=== PATIENT | female | born 1950 | race Caucasian/White ===

== ENCOUNTER 2020-07-06 11:34 | Outpatient (REF) | payer BC, SELFPAY ==
[2020-07-06 12:20] LABS: COVID-19 Test Negative (Negative); IDNOW Serial# 55D5AD1C
== END 2020-07-06 11:35 | disposition home or self-care (01) ==
LOC: HO.LAB 11:34
PROVIDERS: Visit Provider Internal Medicine
DX: Z20.822 Contact with and (suspected) exposure to COVID-19 (principal)
CPT/HCPCS: 36415; 87635; C9803

== ENCOUNTER 2022-08-22 07:34 | Outpatient (REF) | payer BC, SELFPAY ==
[2022-08-22 10:45] LABS: Hematocrit 41.2 % (37.0-47.0); Hemoglobin 13.5 g/dl (12.0-16.0); Mean Corpuscular HGB Conc 32.8 g/dl (31.0-35.0); Mean Corpuscular Hemoglobin 30.7 pg (27.0-33.0); Mean Corpuscular Volume 93.6 fL (80.0-98.0); Mean Platelet Volume 10.9 fL (9.4-12.3); Platelet Count 202 X10*3/uL (160-400); Red Cell Distribution Width 12.3 % (11.0-16.0); White Blood Count 6.8 X10*3/uL (4.8-10.8)
[2022-08-22 11:01] LABS: Alanine Aminotransferase 16 U/L (0-31); Albumin Level 4.2 g/dL (3.5-5.0); Alkaline Phosphatase 66 U/L (39-117); Anion Gap 11 (12-20); Aspartate Amino Transferase 18 U/L (5-31); Bilirubin Total 0.4 mg/dL (0.0-1.0); Blood Urea Nitrogen 15 mg/dL (9-16); Carbon Dioxide 32 mmol/L (22-29); Chloride 104 mmol/L (96-108); Cholesterol 195 mg/dL; Estimated Glomerular Filt Rate > 60; Glucose Fasting 103 mg/dL (60-99); HDL Cholesterol 60 mg/dL; LDL Cholesterol Calculated 124 mg/dl; Potassium 4.9 mmol/L (3.3-5.1); Sodium 142 mmol/L (135-145); Total Protein 6.7 g/dL (6.5-8.0); Triglycerides 55 mg/dL
== END 2022-08-22 07:35 | disposition home or self-care (01) ==
LOC: HO.10HDL 07:34
PROVIDERS: Visit Provider Internal Medicine
DX: E78.5 Hyperlipidemia, unspecified (principal); F41.1 Generalized anxiety disorder; M16.0 Bilateral primary osteoarthritis of hip; M51.16 Intervertebral disc disorders with radiculopathy, lumbar region
CPT/HCPCS: 36415; 80053; 80061; 85027

== ENCOUNTER → 2022-11-01 15:23 | Outpatient (BNVA) | payer BC, SELFPAY | PROVIDERS: PCP Internal Medicine; Visit Provider Internal Medicine Endocrinology, Diabetes & Metabolism | DX: E10.65 Type 1 diabetes mellitus with hyperglycemia (principal) | CPT/HCPCS: 82947 ==

== ENCOUNTER → 2022-11-03 10:27 | Outpatient (BNVA) | payer BC, SELFPAY | PROVIDERS: PCP Internal Medicine; Visit Provider Registered Nurse Diabetes Educator ==

== ENCOUNTER → 2022-12-09 12:22 | Outpatient (BNVA) | payer BC, SELFPAY | PROVIDERS: PCP Internal Medicine; Visit Provider Registered Nurse Diabetes Educator ==

== ENCOUNTER 2022-12-28 11:30 | Outpatient (AMB) | payer BC, SELFPAY ==
--- NOTE | 2022-12-28 11:31 | MHC.OFFVIS ---
Intake Vital Signs 12/28/22 11:33 Height 5 ft 2.5 in Weight 145 lb 15.136 oz BMI 26.3 BP 98/64 Blood Pressure Location Rt brachial Position Sitting Pulse 76 Pulse Source Pulse Oximeter Intake Visit Reasons: f/u Type 2 DM Intake Note: Patient present today to follow up on Type 2 Diabetes Mellitus. 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 Random Glucose: 82 mg/dl HgA1C: 10.6% 10/25/2022 On Line Csr Required: No Accompanied by: Self / Same As Patient Allergies metformin Adverse Reaction (Unknown, Verified 12/28/22 11:38) GI Problems Medication List - Last Reconciled 12/28/22 by Ebenezer Prieto MD flash glucose scanning reader (ConsigndStyle Elvi 2 [place]) As directed flash glucose sensor (FreeStyle Elvi 2 Sensor kit) As directed change every 14 days insulin aspart U-100 (Novolog FlexPen U-100 Insulin aspart) 4 units subcut TID insulin glargine (Basaglar KwikPen U-100 Insulin) 10 units subcut DAILY omeprazole 40 mg PO DAILY pen needle, diabetic (BD Kallie 2nd Gen Pen Needle) As directed once a day sertraline 100 mg PO DAILY simvastatin 20 mg PO BEDTIME HPI HPI Comments History of Present Illness Details 72 YO F who is seen in consultation for T2DM at the request of PCP. Initially diagnosed with T2DM in few wks ago . Was initially started on treatment with metformin . Current regimen Basaglar 15 units . NovoLog 5 units premeals . Only taking NovoLog as needed metformin 500 mg BID . Not taking because of GI upset Elvi download shows she is using the sensor 93% of the time. Average glucose is 121 with G mi of 6.2% and variability 27.9%. 94% range with 5% hyperglycemia and 1% hypoglycemia Not Reports low sugars . Family history of T2DM in mother with Type 2 DM. brother and sister Type 2 DM Has eyes checked yearly, last eye exam 1 yr ago has appt in November 2022 , denies retinopathy. Denies neuropathy, Not sees podiatry. Denies nephropathy, Not on KIKO/ARB. Has HLD, on statin. Denies CAD. [facility] Medical History (Updated 12/28/22 @ 11:42 by Ebenezer Prieto MD) Uncontrolled type 1 diabetes mellitus with hyperglycemia, with long-term current use of insulin Uncontrolled type 2 diabetes mellitus with hyperglycemia Surgical History History of colonoscopy Hx of bladder endoscopy Family History Father Lung cancer Mother Diabetes Social History Alcohol intake: current Alcohol intake frequency: holidays/special occasions only Alcohol type: wine Patient Tobacco Use Status: Never used Tobacco Physical Exam Vital Signs: Last Vital Signs Pulse 76 12/28/22 11:33 BP 98/64 12/28/22 11:33 BMI result Body Mass Index 26.3 Absence of Cushingoid features. Absence of acromegalic features. Neck exam reveals nl size thyroid about 15 gms. No thyroid nodules palpable. No carotid bruits present. Lungs CTA. Heart S1 S2, Reg R/R. No M/R/ G. Skin exam reveals absence of vitiligo or acanthosis nigricans. Abdominal exam reveals Soft NT/ND with NA BS. No organomegaly present. Neck Other: . Extrem Other: Visual exam of foot performed. No ulcerations or open lesions. No onchomycosis, no callouses.Pulses 2 + distally Sensation intact to monofilament exam. Vibratory sensation sensed is intact with 128 Hz tuning fork Results Reviewed Results Reviewed: 12/28/22 11:43 Glucose, Whole Blood Routine Laboratory Last Values Glucose (Clinic) 82 mg/dL (60-115) 12/28/22 11:43 Assessment & Plan Assessment & Plan (1) Uncontrolled type 2 diabetes mellitus with hyperglycemia: Code(s): E11.65 - Type 2 diabetes mellitus with hyperglycemia Plan: This is 72-year-old white female with a history of type 2 diabetes being treated with basal insulin and metformin with excellent improved glycemic control and no known microvascular or macrovascular complications. Plan is to continue the current regimen . Will check microalbumin to creatinine ratio. . Will also check anti-GAD65 antibody to rule out type 1 diabetes. Both were performed at [facility]. If antibodies are negative and patient has type 2 diabetes being controlled with diet exercise modification, the patient can follow up with primary care provider and back to endocrinology if glycemic control worsens. If antibodies are positive, would reinitiate Basaglar at lower dose and have patient follow up here Medications: Changed From insulin aspart U-100 5 units (0.05 mL) subcut TID 15 mL 5RF To insulin aspart U-100 (Novolog FlexPen U-100 Insulin aspart) 4 units subcut TID Coding Level of Care Code Est Pt Level 4 (81665) Diagnoses Uncontrolled type 2 diabetes mellitus with hyperglycemia E11.65
[2022-12-28 11:33] VITALS: BP 98/64; PULSE 76; BMI 26.3
== END 2022-12-28 11:58 | disposition home or self-care (01) ==
LOC: HO.ENCR 11:30
PROVIDERS: PCP Internal Medicine; Visit Provider Internal Medicine Endocrinology, Diabetes & Metabolism
DX: E11.65 Type 2 diabetes mellitus with hyperglycemia (principal)
CPT/HCPCS: 99214

== ENCOUNTER → 2022-12-28 11:30 | Outpatient (BNVA) | payer BC, SELFPAY | PROVIDERS: PCP Internal Medicine; Visit Provider Internal Medicine Endocrinology, Diabetes & Metabolism | DX: E11.65 Type 2 diabetes mellitus with hyperglycemia (principal); Z79.4 Long term (current) use of insulin | CPT/HCPCS: 82947 ==

== ENCOUNTER 2023-07-31 07:04 | Outpatient (AMB) | payer BC, SELFPAY ==
--- NOTE | 2023-07-31 07:13 | A.OFFVIS_ITS ---
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 Accompanied by: Self / Same As Patient Allergies metformin Adverse Reaction (Unknown, Verified 12/28/22 11:38) GI Problems HPI Comprehensive Diabetes Asmnt Most Recent Diabetes Results: Cholesterol 195 mg/dL 08/22/22 HDL Cholesterol 60 mg/dL 08/22/22 Triglycerides 55 mg/dL 08/22/22 Creatinine 0.70 mg/dL (0.5-1.4) 08/22/22 Blood Urea Nitrogen 15 mg/dL (9-16) 08/22/22 Sodium 142 mmol/L (135-145) 08/22/22 Potassium 4.9 mmol/L (3.3-5.1) 08/22/22 Chloride 104 mmol/L (96-108) 08/22/22 Carbon Dioxide 32 mmol/L (22-29) H 08/22/22 Calcium 9.0 mg/dL (8.4-10.2) 08/22/22 AST 18 U/L (5-31) 08/22/22 ALT 16 U/L (0-31) 08/22/22 Total Protein 6.7 g/dL (6.5-8.0) 08/22/22 Albumin 4.2 g/dL (3.5-5.0) 08/22/22 [facility] Medical History (Updated 12/28/22 @ 11:42 by Ebenezer Prieto MD) Uncontrolled type 2 diabetes mellitus with hyperglycemia Uncontrolled type 1 diabetes mellitus with hyperglycemia, with long-term current use of insulin Surgical History Hx of bladder endoscopy History of colonoscopy Family History Father Lung cancer Mother Diabetes Social History Alcohol intake: current Alcohol intake frequency: holidays/special occasions only Alcohol type: wine Patient Tobacco Use Status: Never used Tobacco Assessment & Plan Assessment & Plan (1) Uncontrolled type 2 diabetes mellitus with hyperglycemia: Code(s): E11.65 - Type 2 diabetes mellitus with hyperglycemia Plan: Learning objectives: The patient was provided with verbal and written education on the following topics as outlined below. Assess patient education level/literacy/barriers Patient questions/concerns, patient is overdue for next A1c. Patient is using freestyle Elvi 2 to test glucose Patient above target 26% Patient at target 74% Patient below target 0% Patient had 1 episode of hypoglycemia on Elvi report Patient reports she took NovoLog 10 units when glucose was over 300, then several hours later had hypoglycemic event Patient prescribed Basaglar 10 units Prescribed NovoLog 5 units before meals Patient reports she has been taking insulin regularly only takes it when glucose is high. Reinforced that patient should only take NovoLog before meals and instructed patient that prescribed NovoLog dose is 5 units not 10 The patient met all learning objectives and was able to verbalize understanding and provide teach back of education topics discussed . The patient was provided with the opportunity to ask questions and all questions were answered. Topics covered in today?s session included: Insulin/Injectables (If applicable) * Storage/care of insulin?? * Injection sites? * Site rotation? * Onset, peak, duration * Drawing up insulin? * Injecting insulin/other injectables? * Sharps disposal Continuous blood glucose monitoring (if applicable) Hypoglycemia and Hyperglycemia * Signs and symptoms? * Causes?? * Treatment? * Preventing hypoglycemia? * When to seek medical attention * Blood glucose targets and how you feel when your blood glucose is in and out of your target ranges. * Monitoring and knowing your A1C. * What can make blood glucose go up and down and preventing high and low blood glucose. * Review of blood sugar targets in expected goal range and outside of expected goal range. * Problem solving and preventing hyper/hypoglycemia. * Sick day management of diabetes. * Using blood sugar results in decision making process in managing diabetes. ?Patient was receptive to information provided and participated in the discussion. Asked?appropriate questions and demonstrated good understanding of the topics discussed.? ? Smart Goal Assessment:? Will use rule of 15 to treat hypoglycemia Pt met goal more than 50% % New Smart Goal: Have A1c drawn at next PCP visit Patient Response to instructions: Comprehension of Instructions: fair Readiness to make changes:? contemplation How confident they feel about making changes:fair Patient Instructions: Follow-up with elementary educator in 1 month Coding Level of Care Code Est Pt Level 1 (81258) Diagnoses Uncontrolled type 2 diabetes mellitus with hyperglycemia E11.65
== END 2023-07-31 07:42 | disposition home or self-care (01) ==
PROVIDERS: PCP Internal Medicine; Visit Provider Registered Nurse Diabetes Educator
DX: E11.65 Type 2 diabetes mellitus with hyperglycemia (principal)

== ENCOUNTER → 2023-07-31 07:04 | Outpatient (BNVA) | payer BC, SELFPAY | PROVIDERS: PCP Internal Medicine; Visit Provider Registered Nurse Diabetes Educator | DX: E11.65 Type 2 diabetes mellitus with hyperglycemia (principal) | CPT/HCPCS: 99211 ==

== ENCOUNTER 2023-09-26 07:28 | Outpatient (AMB) | payer BC, SELFPAY ==
--- NOTE | 2023-09-26 07:58 | A.OFFVIS_ITS ---
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 Accompanied by: Self / Same As Patient Allergies metformin Adverse Reaction (Unknown, Verified 12/28/22 11:38) GI Problems HPI Comprehensive Diabetes Asmnt Most Recent Diabetes Results: Cholesterol 195 mg/dL 08/22/22 HDL Cholesterol 60 mg/dL 08/22/22 Triglycerides 55 mg/dL 08/22/22 Creatinine 0.70 mg/dL (0.5-1.4) 08/22/22 Blood Urea Nitrogen 15 mg/dL (9-16) 08/22/22 Sodium 142 mmol/L (135-145) 08/22/22 Potassium 4.9 mmol/L (3.3-5.1) 08/22/22 Chloride 104 mmol/L (96-108) 08/22/22 Carbon Dioxide 32 mmol/L (22-29) H 08/22/22 Calcium 9.0 mg/dL (8.4-10.2) 08/22/22 AST 18 U/L (5-31) 08/22/22 ALT 16 U/L (0-31) 08/22/22 Total Protein 6.7 g/dL (6.5-8.0) 08/22/22 Albumin 4.2 g/dL (3.5-5.0) 08/22/22 [facility] Medical History (Updated 12/28/22 @ 11:42 by Ebenezer Prieto MD) Uncontrolled type 2 diabetes mellitus with hyperglycemia Uncontrolled type 1 diabetes mellitus with hyperglycemia, with long-term current use of insulin Surgical History Hx of bladder endoscopy History of colonoscopy Family History Father Lung cancer Mother Diabetes Social History Alcohol intake: current Alcohol intake frequency: holidays/special occasions only Alcohol type: wine Patient Tobacco Use Status: Never used Tobacco Assessment & Plan Assessment & Plan (1) Uncontrolled type 2 diabetes mellitus with hyperglycemia: Code(s): E11.65 - Type 2 diabetes mellitus with hyperglycemia Plan: Personal Continuous Glucose Monitor: Patients CGM information reviewed Reviewed patient's sensor data: Hypoglycemia: ? 1% Hyperglycemia:? 5% Time in Range:? 94% Average glucose for the last 2 weeks?123 mg/dL Patient has been experiencing hypoglycemia events in the regional construction manager, and post meals. Patient reports she does not have symptoms when meter alerts her of the hypoglycemia. She has currently run out of glucometer strips. Instructed patient to pickling machine operator glucometer strips into fingerstick at time of hypoglycemia alert, if glucose from glucometer is within normal range sensor may be eating glucose lower. Patient reports she has stopped taking NovoLog and Basaglar due to hypoglycemic events Patient reports she did have A1c drawn at last PCP visit, A1c 6.6% Reviewed how to interpret trend arrows Reminded patient that to check finger sticks if symptoms do not match sensor reading. Discussed lag time between finger stick and sensor data.? Patient able to insert sensor independently at home without issue.? Patient Instructions: When sensor alerts you to hypoglycemia event, please double check with glucometer to verify if it is a true low glucose Use rule of 15s is if your glucose is under 70 mg/dL, or if you are experiencing symptoms of hypoglycemia Follow-up with Diabetes Education nurse in one month Coding Level of Care Code Est Pt Level 1 (86367) Diagnoses Uncontrolled type 2 diabetes mellitus with hyperglycemia E11.65
== END 2023-09-26 08:39 | disposition home or self-care (01) ==
PROVIDERS: PCP Internal Medicine; Visit Provider Registered Nurse Diabetes Educator
DX: E11.65 Type 2 diabetes mellitus with hyperglycemia (principal)

== ENCOUNTER → 2023-09-26 07:28 | Outpatient (BNVA) | payer BC, SELFPAY | PROVIDERS: PCP Internal Medicine; Visit Provider Registered Nurse Diabetes Educator | DX: E11.65 Type 2 diabetes mellitus with hyperglycemia (principal) | CPT/HCPCS: 99211 ==

== ENCOUNTER 2023-10-26 07:29 | Outpatient (AMB) | payer BC, SELFPAY ==
--- NOTE | 2023-10-26 07:46 | A.OFFVIS_ITS ---
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 Accompanied by: Self / Same As Patient Allergies metformin Adverse Reaction (Unknown, Verified 12/28/22 11:38) GI Problems HPI Comprehensive Diabetes Asmnt Most Recent Diabetes Results: Cholesterol 195 mg/dL 08/22/22 HDL Cholesterol 60 mg/dL 08/22/22 Triglycerides 55 mg/dL 08/22/22 Creatinine 0.70 mg/dL (0.5-1.4) 08/22/22 Blood Urea Nitrogen 15 mg/dL (9-16) 08/22/22 Sodium 142 mmol/L (135-145) 08/22/22 Potassium 4.9 mmol/L (3.3-5.1) 08/22/22 Chloride 104 mmol/L (96-108) 08/22/22 Carbon Dioxide 32 mmol/L (22-29) H 08/22/22 Calcium 9.0 mg/dL (8.4-10.2) 08/22/22 AST 18 U/L (5-31) 08/22/22 ALT 16 U/L (0-31) 08/22/22 Total Protein 6.7 g/dL (6.5-8.0) 08/22/22 Albumin 4.2 g/dL (3.5-5.0) 08/22/22 [facility] Medical History (Updated 12/28/22 @ 11:42 by Ebenezer Prieto MD) Uncontrolled type 2 diabetes mellitus with hyperglycemia Uncontrolled type 1 diabetes mellitus with hyperglycemia, with long-term current use of insulin Surgical History Hx of bladder endoscopy History of colonoscopy Family History Father Lung cancer Mother Diabetes Social History Alcohol intake: current Alcohol intake frequency: holidays/special occasions only Alcohol type: wine Patient Tobacco Use Status: Never used Tobacco Assessment & Plan Assessment & Plan (1) Uncontrolled type 2 diabetes mellitus with hyperglycemia: Code(s): E11.65 - Type 2 diabetes mellitus with hyperglycemia Plan: Learning objectives: The patient was provided with verbal and written education on the following topics as outlined below. The patient met all learning objectives and was able to verbalize understanding and provide teach back of education topics discussed . The patient was provided with the opportunity to ask questions and all questions were answered. Patient Assessment Assess patient education level/literacy/barriers patient read list of r ecommended screenings for diabetes care maintenance Patient questions/concerns, patient using Cleankeys 2 to review glucose Patient's average glucose in the past 14 days 125 mg/dL Patient above target 4% Patient at target at 96% Patient below target 0% Last reported A1c was in September 2023 6.6% PCP Patient reports she is currently off all diabetes medications and maintaining glucose control with lifestyle changes Exercise Medical clearance Effect of exercise on blood sugar Start slowly and gradually increase pace/duration over time Goal amount of exercise Checking blood glucose/have a source of carbs with you Medications (If applicable) * Name of medication * Dosing/administration instructions * Mechanism of action * Potential side effects * Potential adverse reaction and appropriate treatment * Review onset, peak, duration Assess for concerns re: insurance coverage, cost, barriers to compliance Insulin/Injectables (If applicable) * Storage/care of insulin * Injection sites * Site rotation * Onset, peak, duration * Drawing up insulin * Injecting insulin/other injectables * Sharps disposal Continuous blood glucose monitoring (if applicable) Hypoglycemia and Hyperglycemia * Signs and symptoms * Causes * Treatment * Preventing hypoglycemia * When to seek medical attention Medical alert bracelet Lifestyle * Work * Travel * Stress management * Problem solving Know your goals * A1C * Blood sugar targets * Blood pressure * Cholesterol/LDL Urine microalbumin Smart Goal Assessment: Have A1c drawn at next PCP visit Pt met goal:Pt All of the time/100%: New Goal:? Patient will contact community nutrition educator if she has questions or concerns regarding her diabetes control Educational Materials: The patient was provided with the following written educational materials: ADCES 7 Healthy Behaviors Reducing Risks handout Patient Response to instructions: Comprehension of Instructions: good Readiness to make changes: action How confident they feel about making changes: positive Letter of completion of diabetes Education program will be sent to referring provider . Patient Instructions: Include regular daily activity. ADA recommends 30 minutes of exercise 5 days a week. Weight loss talk to PCP or Office Professional before starting new plan. Test blood sugar as directed; Fasting and 2hpp largest meal. Watch trends in results. Utilize results and to assess how food, physical activity and medications affect blood sugar results. Bring glucometer or CGM to next visit. Be knowledgeable about diabetes medication, its action, side effects, efficacy, toxicity, prescribed dosage, appropriate timing and frequency of administration, effect of missed and delayed doses and instructions for storage, travel and safety. Problem solving techniques to monitor hypo/hyperglycemia episodes and treatments. Reduce risk reduction behaviors, smoking cessation, regular eye, foot and dental examinations. Coding Level of Care Code Est Pt Level 1 (93365) Diagnoses Uncontrolled type 2 diabetes mellitus with hyperglycemia E11.65
== END 2023-10-26 07:55 | disposition home or self-care (01) ==
PROVIDERS: PCP Internal Medicine; Visit Provider Registered Nurse Diabetes Educator
DX: E11.65 Type 2 diabetes mellitus with hyperglycemia (principal)

== ENCOUNTER → 2023-10-26 07:29 | Outpatient (BNVA) | payer BC, SELFPAY | PROVIDERS: PCP Internal Medicine; Visit Provider Registered Nurse Diabetes Educator | DX: E11.65 Type 2 diabetes mellitus with hyperglycemia (principal) | CPT/HCPCS: 99211 ==

== ENCOUNTER 2024-06-14 12:56 | Outpatient (AMB) | payer BC, SELFPAY ==
--- NOTE | 2024-06-14 13:00 | A.OFFVIS_ITS ---
Vital Signs 06/14/24 13:10 Height 5 ft 3 in Weight 159 lb 13.362 oz BMI 28.3 BP 116/72 Blood Pressure Location Lt brachial Position Sitting Pulse 72 Pulse Source Pulse Oximeter Intake Visit Reasons: T2DM/Confirmed Intake Note: Patient present today for Type 2 Diabetes Mellitus. 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 Accompanied by: Self / Same As Patient Allergies metformin Adverse Reaction (Unknown, Verified 06/14/24 13:14) GI Problems Medication List - Last Reconciled 06/14/24 by Vita Tony PA-C flash glucose scanning reader (FreeStyle Elvi 2 [place]) As directed flash glucose sensor (FreeStyle Elvi 2 Sensor kit) As directed change every 14 days minocycline 50 mg PO BID omeprazole 40 mg PO DAILY pen needle, diabetic (BD Kallie 2nd Gen Pen Needle) As directed once a day sertraline 100 mg PO DAILY simvastatin 20 mg PO BEDTIME HPI HPI T2DM/Confirmed: Details: Patient is a 74-year-old female with a significant medical history of type 2 diabetes, hyperlipidemia, anxiety/depression, and GERD presenting today for a follow up last seen about a year and a half ago by Dr. Prieto Endo: Dm A1c is 6.4. She is not on any medications currently and just monitors her blood sugars with a CGM. She needs a refill of the freestyle Elvi reader. She states that it accidentally went through the washing machine broke. No known complications. On a statin. CV: bp is wnl today. [facility] Medical History (Updated 06/14/24 @ 13:36 by Vita Tony PA-C) Uncontrolled type 2 diabetes mellitus with hyperglycemia Uncontrolled type 1 diabetes mellitus with hyperglycemia, with long-term current use of insulin Surgical History Hx of bladder endoscopy History of colonoscopy Family History Father Lung cancer Mother Diabetes Social History Alcohol intake: current Alcohol intake frequency: holidays/special occasions only Alcohol type: wine Patient Tobacco Use Status: Never used Tobacco Physical Exam Vital Signs: Last Vital Signs Pulse 72 06/14/24 13:10 BP 116/72 06/14/24 13:10 BMI result Body Mass Index 28.3 Const Orientation/consciousness: patient oriented x3 Neck Neck: Yes no lymphadenopathy Thyroid: Thyroid normal Carotids: no bruits Resp Auscultation: clear to auscultation bilaterally Cardio Rate: regular rate Rhythm: regular rhythm Heart sounds: S1 normal heart sound present and S2 normal heart sound present Neuro General: patient oriented x3, gait normal and no focal motor deficits Extrem General: Yes normal to inspection Results AMB Hemoglobin A1c AMB Hemoglobin A1c 6.4 % Last Edit by ABDIRASHID Epps on 06/14/24 13:29 Results Reviewed Results Reviewed: Laboratory Last Values Glucose (Clinic) 96 mg/dL (60-115) 06/14/24 13:16 Laboratory Tests 08/22/22 07:40 Sodium 142 Potassium 4.9 Chloride 104 Carbon Dioxide 32 H Anion Gap 11 L BUN 15 Creatinine 0.70 Estimated GFR > 60 AST 18 ALT 16 Triglycerides 55 Cholesterol 195 LDL Cholesterol, Calc 124 HDL Cholesterol 60 Assessment & Plan Assessment & Plan (1) Controlled type 2 diabetes mellitus: Code(s): E11.9 - Type 2 diabetes mellitus without complications Category: Medical Plan: Continue current regimen with diet. She has been diet controlled for about a year. She will continue to monitor. (2) Dyslipidemia: Code(s): E78.5 - Hyperlipidemia, unspecified Category: Medical Plan: Continue simvastatin. Last LFTs and lipids at goal. Has follow up with PCP soon. Orders: Orders AMB Hemoglobin A1c Today E11.65 - Type 2 diabetes mellitus with hyperglycemia, Z13.9 - Encounter for screening, unspecified Medications: Refilled flash glucose scanning reader (FreeStyle Elvi 2 [place]) As directed 1 ea 0RF Coding Level of Care Code Est Pt Level 4 (51905) Diagnoses Controlled type 2 diabetes mellitus E11.9 Dyslipidemia E78.5
[2024-06-14 13:10] VITALS: BP 116/72; PULSE 72; BMI 28.3
[2024-06-14 13:21] LABS: Glucose, Whole Blood 96 mg/dL (60-115)
== END 2024-06-14 14:04 | disposition home or self-care (01) ==
PROVIDERS: PCP Internal Medicine; Visit Provider Physician Assistant
DX: E11.9 Type 2 diabetes mellitus without complications (principal); E78.5 Hyperlipidemia, unspecified; E11.65 Type 2 diabetes mellitus with hyperglycemia

== ENCOUNTER → 2024-06-14 12:56 | Outpatient (BNVA) | payer BC, SELFPAY | PROVIDERS: PCP Internal Medicine; Visit Provider Physician Assistant | DX: E11.9 Type 2 diabetes mellitus without complications (principal); E78.5 Hyperlipidemia, unspecified; Z79.899 Other long term (current) drug therapy | CPT/HCPCS: 82947; 83036 ==